=== PATIENT | female | born 1970 | race Caucasian/White ===

== ENCOUNTER 2017-08-12 05:27 | Inpatient (IN) | payer OTHER ==
[2017-07-11 11:27] VITALS: BMI 19.0
[2017-08-06 14:46] LABS: BASO % 0.6 %; BASO ABS # 0.06 K/uL (0-0.2); EOS % 0.7 %; EOS ABS # 0.07 K/uL (0-0.5); HEMATOCRIT 43.1 % (37-47); HEMOGLOBIN 15.4 g/dL (12.0-16.0); IG# 0.03 K/uL (0.00-0.02); LYMPH % 22.4 %; LYMPH ABS # 2.12 K/uL (1.2-3.4); MEAN CELL VOLUME 102.1 fL (80-100); MEAN CORPUSCULAR HEMOGLOBIN 36.5 pg (25-34); MEAN CORPUSCULAR HGB CONC 35.7 g/dl (32-36); MEAN PLATELET VOLUME 9.2 fL (7.4-10.4); MONO % 5.9 %; MONO ABS # 0.56 K/uL (0.11-0.59); NEUT % 70.1 %; NEUT ABS # 6.62 K/uL (1.4-6.5); PLATELET COUNT 294 K/uL (130-400); RED CELL DISTRIBUTION WIDTH CV 11.4 % (11.5-14.5); RED CELL DISTRIBUTION WIDTH SD 43.2 fL (36.4-46.3); WHITE BLOOD COUNT 9.46 K/uL (4.8-10.8)
--- NOTE | 2017-08-06 14:47 | DIAGNOSTIC IMAGING REPORT ---
TWO VIEW CHEST CLINICAL HISTORY: Preoperative examination. FINDINGS: PA and lateral chest radiographs are compared to study dated 07/23/2007. The cardiomediastinal silhouette is unremarkable. The lungs appear hyperinflated and hyperlucent with flattening of the diaphragm and increased retrosternal clear space. This suggests emphysema. Chronic interstitial thickening similar to previous. No airspace consolidation or pleural effusion is identified. There is no pneumothorax. The bony thorax appears intact. IMPRESSION: Emphysematous change is noted. There is no active disease in the chest. Electronically signed by: Yadiel Rutherford M.D. 08/06/2017 2:46 PM Dictated Date/Time: 08/06/2017 2:45 PM
[2017-08-06 15:03] LABS: CALCIUM 9.4 mg/dl (8.5-10.1); CREATININE 0.77 mg/dl (0.60-1.20); POTASSIUM 3.9 mmol/L (3.5-5.1)
--- NOTE | 2017-08-11 18:49 | HISTORY & PHYSICAL EXAMINATION ---
DATE OF ADMISSION: 08/12/2017 CHIEF COMPLAINT: Neck and arm pain; weakness; upper extremity difficulty, miserable; fairly significant radiculopathy; worsening neck and arm pain and cervical migraines. She is posted for anterior cervical diskectomy and fusion, C5-6 and C6-7 iliac crest bone graft. PAST MEDICAL HISTORY: Asthma. PAST SURGICAL HISTORY: Negative. ALLERGIES: Denied. MEDICATIONS: Aspirin, lorazepam, albuterol, Advair. FAMILY HISTORY: Bladder carcinoma, single. SOCIAL HISTORY: No alcohol. Moderate tobacco. Takes care of 2 jobs. Active lifestyle. REVIEW OF SYSTEMS: Denies any fevers, sweats, chills. Does have cervical headaches. Denies chest pain, palpitations. No asthma, wheezing. No nausea, vomiting. No urgency, frequency, dysuria. Admits to numbness and tingling, weakness and pain. No immune deficiency. No easy bruisability. OBJECTIVE: GENERAL: Height 5 feet 3 inches; weight 110 pounds; in distress; alert, oriented; communicates well. VITAL SIGNS: Blood pressure 120/80, pulse 80, respirations 16. HEART: Normal S1, S2, no S3. LUNGS: Clear to auscultation. No rales, rhonchi, wheezing. ABDOMEN: Soft and nontender, no masses, organomegaly. LYMPHATICS: No lymphadenopathy. NEUROLOGIC: Cranial nerves intact. Facial nerves intact. She has pain with flexion, extension, side bending and rotation. 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 She has a Spurling maneuver and Lhermitte sign bilaterally with flexion, extension of cervical spine. IMAGES: Demonstrate 2 level pathology, C5-6 and C6-7. DISPOSITION: Include anterior cervical diskectomy and fusion, C5-6 and C6-7 cervical spine with iliac crest bone graft.
[~2017-08-12] VITALS: Ht 160 cm; Wt 50.0 kg
[2017-08-12] VITALS (15 sets, daily range): BP systolic 118–142; BP diastolic 67–82; PULSE 50–85; TEMP 36.6–36.9; O2SAT 95–100; Ht 160 cm; Wt 50.0 kg
[~2017-08-12 05:27] MED LIST: ADVIN25/60 INH; ALBINS/ INH; ASCA500 PO; ASPI81TA28 PO; CHOL2000 PO; CYAN100020 PO; LORA-741 PO; MONT1TAB3 PO; VNTHFA/IN INH
[2017-08-12] MEDS ORDERED: ACETAMINOPHEN 500 MG TAB PO SCH (06:00)
[2017-08-12] MEDS ORDERED: ACETAMINOPHEN IV 1000MG/100ML IV SCH (06:00)
[2017-08-12] MEDS ORDERED: LACTATED RINGER'S 1000ML 1,000 ML IV SCH (06:00)
[2017-08-12] MEDS ORDERED: NSS 1000ML IV SCH (06:00)
[2017-08-12] MEDS ORDERED: CEFAZOLIN 1000MG IV PUSH 7.5 ML IV SCH (06:00)
[2017-08-12] MEDS ORDERED: GELATIN SPONGE SZ 100 ONE (07:06)
[2017-08-12] MEDS ORDERED: BUPIVACAINE/EPINEPHRINE 0.5% MPF 1:200,000 30 ML VIAL ONE ×2 (07:06→07:07)
[2017-08-12] MEDS ORDERED: BACITRACIN 50000 UNIT VIAL ONE (07:06)
[2017-08-12] MEDS ORDERED: THROMBIN FOR SOLN 20000 UNIT KIT ONE (07:06)
[2017-08-12] MEDS ORDERED: LIDOCAINE HCL 2% JELLY 30 ML TUBE ONE (07:14)
[2017-08-12] MEDS ORDERED: FENTANYL CITRATE INJ 50 MCG/1 ML 2 ML VIAL ONE (07:17)
[2017-08-12] MEDS ORDERED: MIDAZOLAM HCL 1 MG/ML 2ML VIAL ONE (07:17)
--- NOTE | 2017-08-12 07:19 | History & Physical Bridge Note ---
H&P Re-Evaluation Bridge Note: I have examined the patient, reviewed the History & Physical and in the interval since the performance of the History & Physical I have noted the following changes of clinical significance: No changes noted
[2017-08-12] MEDS ORDERED: KETAMINE HCL INJ 50 MG/ML 10 ML VIAL ONE (07:53)
[2017-08-12] MEDS ORDERED: HYDROmorphone INJ 2 MG/ML SYR/VIAL ONE ×2 (07:53→09:46)
[2017-08-12] MEDS ORDERED: ROCURONIUM BROMIDE 10 MG/ML 5 ML VIAL ONE (08:16)
[2017-08-12] MEDS ORDERED: ONDANSETRON INJ 2 MG/ML 2 ML VIAL ONE (08:16)
[2017-08-12] MEDS ORDERED: LIDOCAINE HCL 2% 2 ML VIAL (20MG/ML) ONE (08:16)
[2017-08-12] MEDS ORDERED: DEXAMETHASONE SOD INJ 4 MG/ML VIAL ONE (08:16)
[2017-08-12] MEDS ORDERED: PROPOFOL IV EMULSION 10 MG/ML 20 ML VIAL ONE (08:16)
[2017-08-12] MEDS ORDERED: GLYCOPYRROLATE INJ 0.2 MG/ML VIAL ONE (09:19)
[2017-08-12] MEDS ORDERED: NEOSTIGMINE METHYLSULFATE 5 MG/5 ML SYR ONE (09:19)
--- NOTE | 2017-08-12 09:28 | [facility] Post Operative Brief Note ---
Immediate Operative Summary Operative Date August 12, 2017. Pre-Operative Diagnosis Spinal Cord Compression Post-Operative Diagnosis Spinal Cord Compression Procedure(s) Performed C5-C6, C6-C7 Anterior Cervical Discectomy and Fusion with Iliac Crest Bone Graft Surgeon Dr. Kvng Gomes Emt B Surgeon(s) Porsche Davidson PA-C Estimated Blood Loss 25CC Findings Consistent with Post-Op Diagnosis Specimens none per surgeon Anesthesia Type General Complication(s) none Disposition Disposition: Recovery Room / PACU
--- NOTE | 2017-08-12 09:35 | DIAGNOSTIC IMAGING REPORT ---
Cervical SPINE, INTRAOPERATIVE FLUOROSCOPY HISTORY: C5-C7 ACDF. FLUOROSCOPY TIME: 8 seconds. FINDINGS: Intraoperative fluoroscopy was provided for the cervical spine. 2 fluoroscopic spot images were obtained. Anterior cervical discectomy and fusion from C5 through C7. The hardware appears intact. An endotracheal tube is partially visualized. IMPRESSION: Fluoroscopy provided for a C5-C7 ACDF. Electronically signed by: Kian Juan M.D. 08/12/2017 9:34 AM Dictated Date/Time: 08/12/2017 9:33 AM
[2017-08-12] MEDS ORDERED: LORAZEPAM 0.5 MG TAB PO PRN (09:45)
[2017-08-12] MEDS ORDERED: ONDANSETRON INJ 2 MG/ML 2 ML VIAL IV PRN ×2 (09:45→10:00)
[2017-08-12] MEDS ORDERED: LORAZEPAM INJ 0.5 MG in SYRINGE 0.75 ML IV PRN (09:45)
[2017-08-12] MEDS ORDERED: CEFAZOLIN IV 1,000 MG in DEXTROSE 5% 50ML 50 ML IV SCH (09:45)
[2017-08-12] MEDS ORDERED: RACEPINEPHRINE 2.25% NEBU SOLN 0.5 ML VIAL INH PRN (09:45)
[2017-08-12] MEDS ORDERED: NALOXONE HCL 0.4 MG/1 ML VIAL/CARP IV PRN ×2 (09:45→10:00)
[2017-08-12] MEDS ORDERED: MONTELUKAST SOD 10 MG TAB PO PRN (09:45)
[2017-08-12] MEDS ORDERED: MAGNESIUM HYDROXIDE SUSP 30 ML UDC PO PRN (09:45)
[2017-08-12] MEDS ORDERED: HYDROmorphone INJ 0.5 MG/0.5 ML SYR IV PRN (09:45)
[2017-08-12] MEDS ORDERED: DEXAMETHASONE INJ 8 MG in SYRINGE 0 ML IV PRN (09:45)
[2017-08-12] MEDS ORDERED: ALBUTEROL 0.083% NEBU SOLN 3 ML VIAL INH PRN (09:45)
[2017-08-12] MEDS ORDERED: ACETAMINOPHEN IV 1,000 MG in EMPTY BAG 0 ML IV PRN (09:45)
[2017-08-12] MEDS ORDERED: HYDROmorphone INJ 1 MG/ML SYR IV PRN (10:00)
[2017-08-12] MEDS ORDERED: FLUMAZENIL 0.1 MG/1 ML 10 ML VIAL IV PRN (10:00)
[2017-08-12] MEDS ORDERED: ATROPINE SULFATE 0.1 MG/ML 5ML SYR IV PRN (10:00)
[2017-08-12] MEDS ORDERED: LABETALOL HCL IV 5 MG/ML 20ML IV PRN (10:00)
[2017-08-12] MEDS ORDERED: EpHEDrine SULFATE INJ 50 MG/ML AMP IV PRN (10:00)
[2017-08-12] MEDS ORDERED: PROMETHAZINE HCL INJ 12.5 MG in SODIUM CHLORIDE 0.9% 50ML 50 ML IV PRN (10:00)
--- NOTE | 2017-08-12 11:09 | Anesthesiology Progress Note ---
Anesthesia Post Op Note Date & Time August 12, 2017 at 11:09 Vital Signs Pain Intensity: 3 Vital Signs Past 12 Hours Date Time Temp Pulse Resp B/P (MAP) Pulse Ox O2 Delivery O2 Flow Rate FiO2 08/12/17 10:32 61 17 08/12/17 10:32 62 17 100 08/12/17 10:31 125/84 08/12/17 10:27 57 14 08/12/17 10:27 56 14 99 08/12/17 10:27 36.8 62 20 125/84 (92) 100 Nasal Cannula 2 08/12/17 10:26 146/70 08/12/17 10:22 60 14 164/77 100 08/12/17 10:22 60 14 08/12/17 10:17 59 8 100 08/12/17 10:17 58 8 08/12/17 10:15 131/88 08/12/17 10:12 60 15 08/12/17 10:12 60 15 100 08/12/17 10:11 61 17 156/81 100 08/12/17 10:11 60 17 08/12/17 10:11 61 17 156/81 100 08/12/17 10:11 60 17 08/12/17 10:05 59 12 164/87 100 Oxymask 2 08/12/17 09:55 71 16 165/89 100 Oxymask 10 08/12/17 09:45 81 12 158/86 100 Oxymask 10 08/12/17 09:36 36.2 91 15 154/86 100 Oxymask 10 08/12/17 05:57 36.7 68 20 125/79 99 Room Air Notes Mental Status: alert / awake / arousable, participated in evaluation Pt Amnestic to Procedure: Yes Nausea / Vomiting: adequately controlled Pain: adequately controlled Airway Patency, RR, SpO2: stable & adequate BP & HR: stable & adequate Hydration State: stable & adequate Anesthetic Complications: no major complications apparent
--- NOTE | 2017-08-12 11:25 | OPERATIVE REPORT ---
DATE OF OPERATION: 08/12/2017 PREOPERATIVE DIAGNOSIS: Spinal cord compression C6-C7, C5-C6. POSTOPERATIVE DIAGNOSIS: Same. PROCEDURE: Two-level ACDF cervical spine, left iliac crest bone graft. DESCRIPTION OF PROCEDURE: The patient was taken to the operating room, a general intubated anesthetic provided to the patient, kept supine, scrubbed, prepped and draped sterile both the crest and her cervical spine. We made roughly a transverse skin incision over C6 vertebrae dissecting the soft tissue, it is a classic Quinones Elias approach to the anterior aspect of the cervical spine which got through all fascial layers. We marked the C5-6 with a cross table lateral x-ray commenced with the discectomies. A complete discectomy was performed at C5-C6 and C6-C7 cervical spine laterally to the uncovertebral joints bilaterally. We also got back through the posterior longitudinal ligament. All visible disc material was retrieved, was removed. I undercut the vertebrae as well. We went to the left iliac crest. We made a skin incision, fascial incision, harvested bone graft using a saw blade and an osteotome. The bone grafts were approximately 6.5 mm in height, tapered to 6 mm, approximately mm across and 30 mm in depth. These were placed into discectomy sites. The positioning was anatomic with small plate over the anterior structures, 32 mm plate by Dindong secured this with cortical screws. Cross table images demonstrated excellent positioning. We irrigated, closed in layers, cervical spine, iliac crest and sterile dressings applied. The areas were anesthetized with Marcaine. Cervical collar applied. The patient then extubated safely, returned to PACU safely. Again, no complications. Sponge and needle count correct at the close. IMPLANTS USED: By the Dindong. I attest to the content of the Intraoperative Record and any orders documented therein. Any exception s are noted below.
[2017-08-12] MEDS: SODIUM CHLORIDE 0.9% 1000ML 1,000 ML IV SCH (12:15)
[2017-08-12] MEDS: OXYCODONE HCL IR 5 MG TAB (IMMEDIATE RELEASE) PO PRN ×2 (15:06→20:20)
[2017-08-12] MEDS: DEXAMETHASONE INJ 6 MG in SYRINGE 0 ML IV SCH (16:05)
[2017-08-12] MEDS: CEFAZOLIN IV 1,000 MG in SYRINGE 0 ML IV SCH (16:05)
--- NOTE | 2017-08-12 19:17 | Discharge Instructions ---
Discharge Instructions Date of Service August 12, 2017. Admission Reason for Admission: Cervical Spondylosis Discharge Discharge Diagnosis / Problem: SAME ABOVE Discharge Goals Goal(s): Decrease discomfort, Improve function Activity Recommendations Activity Limitations: as noted below Lifting Limitations: until after follow-up appointment Exercise/Sports Limitations: until after follow-up appointment Shower/Bathe: keep incision dry . Instructions / Follow-Up Instructions / Follow-Up MEDICATIONS: Please take your prescriptions as instructed at your pre-op appointment. SPECIAL CARE: The following information is intended to answer some of the common questions and concerns regarding your surgery. Each patient is an individual and receives individual counselling throughout the course of treatment, from diagnosis to surgery all the way through recovery. What follows is not an exhaustive list, but should be a useful guide to some of the common questions and concerns patients have regarding their surgeries. These are not provided to keep you from calling us; rather, they give you something accurate and concrete to reference as you recover from your procedure. If you need us, we are available to you. As always, if you are not sure about something, call us at [phone]. MEDICAL EMERGENCIES: For these conditions, call 911 or go to your local hospital-based Emergency Department - not [facility] or equivalent. * Paralysis * Severe chest pain or difficulty breathing * Swelling or redness of either leg Spine procedures can be rather complex and though complications are rare, they do occur. In such cases, effective advice regarding emergency situations cannot always be addressed over the telephone. You may be referred to the emergency department for more effective management of your problem. Activity Limitations: It is important to give your body time to heal, so please limit your activities : * In general, don't do anything that moves your spine too much. You should avoid contact sports, twisting or heavy lifting while you recover. * 5-10 pounds is all you should attempt to lift. * You should not plan on driving for approximately 3 weeks and you should avoid traveling more than 30-45 minutes at a time. Longer trips should be broken down with walking breaks spaced appropriately. * Physical therapy is not usually required. * Walking and good posture practices will help you recover and regain your function. * Avoid straining or sudden changes in position. * In general, the goal is to take it easy and recover. Don't cause any new problems. Just relax. Showers: * Do not take a bath, use a Jacuzzi or hot tub or otherwise submerge your incision. * It is usually safe to take a shower 4-5 days after your surgery. * Your incision does not require any special creams or ointments. * Simply clean it with soap and water, dry and re-dress with a clean bandage afterwards. Incision: * Keep incision clean, dry and protected until your first follow-up appointment. * Some amount of drainage and redness is normal. Any drainage should be fairly clear and not have a foul odor. * If you feel anything is wrong or you have excessive drainage, please call us. * Your stitches and domingo will be removed 10-14 days after your surgery. At the time of your first post-op visit. * Neck surgeries are typically closed with a suture underneath the skin. The steri-strips over the incision should be maintained until we see you in the office. Bracing: * You may be provided with a back or neck brace to encourage good posture and prevent injury. It will remind you not to do too much as you heal and will alert others to the fact that you have had a surgery. * Back braces may be removed for showers and when you are resting at home. They must be worn when you are walking around for any period of time or for travel. * For neck surgery, you will likely be provided with two cervical collars. The soft collar (Moyers or foam rubber) is worn most commonly throughout the day and while sleeping. The plastic collar (provided at the hospital) is for showering/bathing. * Except while eating, collars should remain in place. More specifically, bracing is provided for a purpose and should be worn. * Please obtain your brace or collars prior to your operation and bring them to the hospital with you on the day of surgery. * You should also bring your collars to your post-op appointment with Dr. Gomes. You should always take good care of your body and practice healthy habits, especially following surgery. You should: * Follow your doctor's treatment plan * Sit and stand properly with good posture (ears over shoulders, shoulders over hips) Don't slouch * Learn to lift correctly * Exercise regularly (low-impact aerobic exercise is especially good, but check with your doctor first) * Generally, be up and walking for 5-10 minutes at a time at least 3-4 times per day from the day you get home * Increasing walking to tolerance until you can walk for 20-30 minutes at a time * Attain and maintain a healthy body weight * Eat healthy foods ( a well-balanced, low-fat diet rich in fruits and vegetables) and get enough calcium * Avoid excessive use of alcohol When to call our office - If you notice any of the following: * Increased pain not relieve by pain medicine * Fevers greater then 100 degrees F, chills or flu symptoms * Increased redness around incision * Drainage from the incision that is not clear * Any foul smelling drainage * Swelling or fluid collection beneath the skin Miscellaneous: * In the hospital, you may be given a walker or cane for support while walking. These are temporary needs and are intended to prevent injuries due to falls. You may discontinue them when you feel strong and steady enough on your feet. * Sleep in a comfortable position. We find that many patients find a lounge chair or recliner with several pillows to be beneficial in the early post-operative period. * The support stockings should be used for 7-10 days and may be discontinued when you are back to walking more and conducting usual household activities. No problem is insignificant. We are here to help you and get you well. Contact us at [phone]. Definitions: Foraminotomy: If part of the disc or a bone spur (osteophyte) is pressing on a nerve as it leaves the vertebra (through an exit called the foramen), a foraminotomy may be done. Otomy means "to make an opening." A foraminotomy is making the opening of the foramen larger, so the nerve can exit without being compressed. Laminotomy: Similar to the foraminotomy, a laminotomy makes a larger opening, this time in your bony plate protecting your spinal canal and spinal cord (the lamina). The lamina may be pressing on your nerve, so the surgeon may make more room for the nerves using a laminotomy. Laminectomy: Sometimes, a laminotomy is not sufficient. The surgeon may need to remove all or part of the lamina. This procedure is called a laminectomy. This can often be done at many levels without any harmful effects. Current Hospital Diet Patient's current hospital diet: Clear Liquid Diet Discharge Diet Recommended Diet: Regular Diet Procedures Procedures Performed: C5-C6, C6-C7 Anterior Cervical Discectomy and Fusion with Iliac Crest Bone Graft Pending Studies Studies pending at discharge: no Medical Emergencies . Who to Call and When: Medical Emergencies: If at any time you feel your situation is an emergency, please call 911 immediately. . Non-Emergent Contact Non-Emergency issues call your: Primary Care Provider . "Provider Documentation" section prepared by Duncan Davidson. .
[2017-08-12] MEDS: DOCUSATE SODIUM 100 MG CAP PO SCH (20:20)
[2017-08-12] MEDS: FLUTICASONE/SALMETEROL 250/50 (ADVAIR) 14 PUFF/1 INHALER INH SCH (20:21)
[2017-08-13] VITALS (10 sets, daily range): BP systolic 112–130; BP diastolic 64–80; PULSE 55–84; TEMP 36.7–37; O2SAT 94–99
[2017-08-13] MEDS: DEXAMETHASONE INJ 6 MG in SYRINGE 0 ML IV SCH ×2 (00:03→08:13)
[2017-08-13] MEDS: CEFAZOLIN IV 1,000 MG in SYRINGE 0 ML IV SCH ×2 (00:03→08:13)
[2017-08-13] MEDS: SODIUM CHLORIDE 0.9% 1000ML 1,000 ML IV SCH (00:03)
[2017-08-13] MEDS: OXYCODONE HCL IR 5 MG TAB (IMMEDIATE RELEASE) PO PRN ×2 (04:07→10:32)
[2017-08-13] MEDS ORDERED: HYDR-4383 PO (08:02)
--- NOTE | 2017-08-13 08:44 | DISCHARGE SUMMARY ---
DATE OF DISCHARGE: 08/13/17 SUBJECTIVE: Minimal complaints of pain, no chest pain, shortness of breath, no confusion. No calf tenderness. OBJECTIVE: Vital signs stable, alert, oriented, dressings intact, clean, dry. ASSESSMENT: Status post anterior cervical discectomy and fusion 2 level, doing well short run. PLAN: We will change her dressing this morning. We will discharge her home. She has a prescription on her chart. She has a followup appointment. She was given instructions and precautions on 2 different episodes.
[2017-08-13] MEDS ORDERED: ASCORBIC ACID 500 MG TAB PO SCH (09:00)
[2017-08-13] MEDS ORDERED: ASPIRIN 81 MG ECTAB PO SCH (09:00)
[2017-08-13] MEDS: DOCUSATE SODIUM 100 MG CAP PO SCH (09:17)
[2017-08-13] MEDS: FLUTICASONE/SALMETEROL 250/50 (ADVAIR) 14 PUFF/1 INHALER INH SCH (09:17)
--- NOTE | 2017-08-13 10:11 | Anesthesiology Progress Note ---
Anesthesia Post Op Note Date & Time August 13, 2017 at 10:10 Vital Signs Pain Intensity: 3.0 Vital Signs Past 12 Hours Date Time Temp Pulse Resp B/P (MAP) Pulse Ox O2 Delivery O2 Flow Rate FiO2 08/13/17 08:10 36.9 55 16 114/68 99 Room Air 08/13/17 08:10 Room Air 08/13/17 08:10 36.9 55 16 114/68 (83) 99 Room Air 08/13/17 07:16 55 16 98 Room Air 08/13/17 06:10 36.9 84 16 117/64 96 Room Air 08/13/17 04:09 36.8 16 118/71 99 Nasal Cannula 2.0 Humidified Oxygen 08/13/17 03:23 59 16 99 Nasal Cannula 2.0 08/13/17 02:20 36.7 16 118/65 94 Nasal Cannula 2.0 Humidified Oxygen 08/13/17 00:05 36.8 64 16 112/70 (84) 96 Nasal Cannula 2.0 Humidified Oxygen 08/13/17 00:05 Nasal Cannula 2.0 Humidified Oxygen 08/13/17 00:05 36.8 64 16 112/70 96 Nasal Cannula 2.0 Humidified Oxygen 08/12/17 23:51 58 14 95 Room Air Notes Mental Status: alert / awake / arousable, participated in evaluation Pt Amnestic to Procedure: Yes Nausea / Vomiting: adequately controlled Pain: adequately controlled Airway Patency, RR, SpO2: stable & adequate BP & HR: stable & adequate Hydration State: stable & adequate Anesthetic Complications: no major complications apparent
[2017-08-14] MEDS ORDERED: BISACODYL 10 MG SUPP PR PRN (06:00)
[2017-08-14] MEDS ORDERED: BISACODYL 5 MG TABEC PO PRN (06:00)
== END 2017-08-13 10:50 | disposition home or self-care (01) | DRG 30 ==
LOC: C.ACU 05:27 → C.3E 09:37 → ENRESERV 10:20
PROVIDERS: ADMIT Orthopaedic Surgery Orthopaedic Surgery of the Spine; ATTEND Orthopaedic Surgery Orthopaedic Surgery of the Spine
PROC: 0RG2070 Fusion of 2 or more Cervical Vertebral Joints with Autologous Tissue Substitute, Anterior Approach, Anterior Column, Open Approach (ICD-10-PCS; principal; 2017-08-12 07:30)
PROC: 0RT30ZZ Resection of Cervical Vertebral Disc, Open Approach (ICD-10-PCS; principal; 2017-08-12 07:30)
PROC: 0QD10ZZ Extraction of Sacrum, Open Approach (ICD-10-PCS; principal; 2017-08-12 07:30)
DX: G95.20 Unspecified cord compression (principal); J45.909 Unspecified asthma, uncomplicated; Z79.82 Long term (current) use of aspirin; Z80.52 Family history of malignant neoplasm of bladder